=== PATIENT | male | born 1955 ===

== ENCOUNTER 2018-04-19 20:59 | Emergency (ER) | payer OTHER ==
[2018-04-19] MEDS ORDERED: Sodium Chloride 0.9% 500 ML IV ONE ×2 (21:48→23:46)
[2018-04-19 21:51] LABS: BASO % 0.3 % (0.0-2.0); EOS # 0.2 K/uL (0.0-0.7); EOS % 1.7 % (0.0-4.0); HEMOGLOBIN 15.1 g/dL (12.0-18.0); LYMPH # 0.3 K/uL (1.0-4.3); LYMPH % 2.1 % (20.0-40.0); MEAN CELL VOLUME 82.7 fL (80.0-94.0); MEAN CORPUSCULAR HGB CONC 32.6 g/dL (33.0-37.0); MONO # 0.9 K/uL (0.0-0.8); MONO % 6.7 % (0.0-10.0); NEUT # 11.8 K/uL (1.8-7.0); NEUT % 89.2 % (50.0-75.0); NRBC % 0.1 % (0.0-2.0); PLATELET COUNT 323 K/uL (130-400); RBC 5.61 Mil/uL (4.40-5.90); RED CELL DISTRIBUTION WIDTH 13.7 % (11.5-14.5); WHITE BLOOD COUNT 13.2 K/uL (4.8-10.8)
[2018-04-19 22:03] LABS: ALB/GLOB RATIO 1.8 (1.0-2.1); ALBUMIN 4.9 g/dL (3.5-5.0); ALT/SGPT 37 U/L (21-72); AST/SGOT 33 U/L (17-59); BLOOD UREA NITROGEN 16 mg/dL (9-20); CALCIUM 9.6 mg/dl (8.6-10.4); GFR NON-AFRICAN AMERICAN > 60; LIPASE 93 U/L (23-300)
--- NOTE | 2018-04-19 22:06 | C.PDOC ---
History Of Present Illness 62 year old male presents to the ER with a complaint of epigastric pain radiating up into his chest that began today and is associated with nausea and fever. Patient reports similar episodes twice before that resolved on their own. He is scheduled to see GI this week. Denies SOB, vomiting, diarrhea, or dysuria. Admits to mild nonproductive cough. Time Seen by Provider: 04/19/18 21:19 Chief Complaint (Nursing): Fever History Per: Patient History/Exam Limitations: no limitations Onset/Duration Of Symptoms: Hrs Current Symptoms Are (Timing): Still Present Location Of Pain/Discomfort: Epigastric Radiation Of Pain To:: Chest Quality Of Discomfort: Unable To Describe Associated Symptoms: Fever, Nausea, Other (Mild nonproductive cough) Exacerbating Factors: None Alleviating Factors: None Recent travel outside of the [place]: No Past Medical History Reviewed: Historical Data, Nursing Documentation, Vital Signs Vital Signs: Last Vital Signs Temp 102.3 F H 04/19/18 21:14 Pulse 127 H 04/19/18 21:14 Resp 20 04/19/18 21:14 BP 142/92 H 04/19/18 21:14 Pulse Ox 93 L 04/19/18 21:14 Family History: States: Unknown Family Hx - Social History Hx Alcohol Use: No Hx Substance Use: No - Immunization History Hx Tetanus Toxoid Vaccination: Yes Hx Influenza Vaccination: No Hx Pneumococcal Vaccination: No Review Of Systems Constitutional: Positive for: Fever Respiratory: Positive for: Cough (Mild nonproductive) Gastrointestinal: Positive for: Nausea, Abdominal Pain (Radiating into chest) Physical Exam - Physical Exam Appears: Non-toxic, Other (Uncomfortable. Able to speak in complete sentences.) Skin: Normal Color, Warm, Dry Head: Atraumatic, Normacephalic Eye(s): bilateral: Normal Inspection Oral Mucosa: Moist Neck: Normal, Supple Chest: Symmetrical, No Tenderness Cardiovascular: Rhythm Regular Respiratory: Normal Breath Sounds, No Rales, No Rhonchi, No Wheezing Gastrointestinal/Abdominal: Soft, Tenderness (Mildly to epigastric area. Negative Curtis's, Negative Mcburney's.) Back: No CVA Tenderness Neurological/Psych: Oriented x3, Normal Speech ED Course And Treatment - Laboratory Results Result Diagrams: 04/19/18 21:46 04/19/18 21:46 Lab Results: Total Bilirubin 1.2 mg/dL (0.2-1.3) 04/19/18 21:46 AST 33 U/L (17-59) 04/19/18 21:46 ALT 37 U/L (21-72) 04/19/18 21:46 Alkaline Phosphatase 138 U/L (38-126) H 04/19/18 21:46 Total Protein 7.7 g/dL (6.3-8.3) 04/19/18 21:46 Albumin 4.9 g/dL (3.5-5.0) 04/19/18 21:46 Globulin 2.8 gm/dL (2.2-3.9) 04/19/18 21:46 Albumin/Globulin Ratio 1.8 (1.0-2.1) 04/19/18 21:46 Lipase 93 U/L (23-300) 04/19/18 21:46 ECG: Interpreted By Me, Viewed By Me ECG Rhythm: Sinus Tachycardia ECG Interpretation: Normal Interpretation Of ECG: Normal axis, Q waves in 3 and avf, No acute ST/T wave changes. Rate From EC O2 Sat by Pulse Oximetry: 93 - CT Scan/US ct abd/pelvis Other Rad Studies (CT/US): Read By Radiologist, Radiology Report Reviewed CT/US Interpretation: Name:AIRAM FLOOD Exam Date:Apr 19, 2018 10:57:38 PM EST. Modality Type:CT. Description :CT - ABDOMEN AND PELVIS WITH CORONAL AND SAGITTAL MPRS. Gender:M Laterality:Not applicable. :53 Referring Physician:KRISSY DEE MD. EXAM: CT Abdomen and Pelvis without IV contrast. CLINICAL HISTORY: Samara umbilical pain. TECHNIQUE: Axial computed tomography images of the abdomen and pelvis without intravenous contrast. CONTRAST: Without intravenous contrast. COMPARISON: None provided. FINDINGS: LUNG BASES: The lung bases appear clear. No pleural effusions are seen. LIVER: Unremarkable. GALLBLADDER AND BILE DUCTS: The gallbladder appears within normal limits. No radioopaque gallstones are seen. No biliary ductal dilatation is evident. PANCREAS: Unremarkable. SPLEEN: Unremarkable. ADRENAL GLANDS: Unremarkable. KIDNEYS, URETERS, AND BLADDER: A tiny punctate non-obstructing calculus is seen in the posterior mid-lower left renal pole. Otherwise, the kidneys appear within normal limits. There is no hydronephrosis or hydroureter. No urinary calculi are seen. The urinary bladder is normal in size and configuration. STOMACH AND BOWEL: There is circumferential mucosal edematous thickening of the vargas of the lower esophagus extending to the esophagogastric junction. This could indicate a component of reflux esophagitis. Consideration could be given to upper endoscopic evaluation. The stomach is mildly distended with fluid and gas. No evidence of bowel obstruction. No evidence suggesting enteritis or colitis. APPENDIX: No evidence of acute appendicitis on CT examination. PERITONEUM: No free fluid. No free air. A left inguinal-left scrotal hernia is present which contains fluid. The left hemiscrotum appears fluid distended. There is also evidence of previous bilateral inguinal herniorrhaphy. LYMPH NODES: No lymphadenopathy is evident. REPRODUCTIVE: The seminal vesicles and prostate gland appear normal. VASCULATURE: No evidence of abdominal aortic aneurysm. BONES: No aggressive appearing osseous lesion. No acute osseous pathology evident. Mild levoscoliotic curvature of the lumbar spine is noted with the apex at L3. There is evidence of advanced degenerative disc disease at L5-S1. IMPRESSION: 1. No acute intra-abdominal or pelvic abnormality. 2. Circumferential mucosal thickening of the vargas of the lower esophagus extending to the esophagogastric junction. This may be subsequent to GERD. Consideration could be given to upper endoscopic evaluation. 3. A punctate non-obstructing calculus is noted in the posterior mid-lower left renal pole. 4. A left inguinal-left scrotal hernia is present which contains fluid distention within the left hemiscrotal sac. Urology consultation may be indicated. 5. Status post previous bilateral inguinal herniorrhaphy. 6. Evidence of advanced degenerative disc disease at L5-S1. . Electronically signed on Apr 19, 2018 11:43:11 PM EST by: Hero Dacosta M.D., [employer] Certified By ABR & CBC[employer]. Fellowship Trained MRI and CT Specialist Progress Note: Blood work, urinalysis, EKG, and CXR ordered. IV fluids and tylenol administered. Disposition Counseled Patient/Family Regarding: Studies Performed, Diagnosis, Need For Followup, Rx Given - Disposition Referrals: Aris Estrada MD [Staff Provider] - Disposition: HOME/ ROUTINE Disposition Time: 01:45 Condition: STABLE Additional Instructions: FOLLOW UP WITH YOUR COMBAT SYSTEMS OFFICER THURSDAY SCHEDULED USE MEDICATIONS DIRECTED/NEEDED RETURN TO EMERGENCY ROOM IF YOUR SYMPTOMS BECOME WORSE KARTIK SEGUIMIENTO CON TALAVERA GASTROENTERLOGO EL JUEVES SEGN LO HABILITADO UTILICE MEDICAMENTOS SEGN DIRIGIDO / NECESARIO VUELVA A LA [place] DE EMERGENCIA SI NIGHAT SNTOMAS SE HACEN PEOR Prescriptions: Aluminum Hydroxide/Magnesium [Maalox Plus 30 ml] 30 ml PO BID PRN #1 bottle PRN Reason: EPIGASTRIC PAIN Famotidine [Pepcid] 20 mg PO BID PRN #15 tab PRN Reason: abdominal Pantoprazole [Protonix EC Tab] 20 mg PO DAILY #30 ect Instructions: Dyspepsia (DC), Acid Reflux (Gastroesophageal Reflux Disease), Adult (DC) Forms: [employer] (Sami) Print Language: ZAMBIAN - Clinical Impression Clinical Impression: Epigastric abdominal pain - Scribe Statement The provider has reviewed the documentation as recorded by the Scribe Romeo Gayle All medical record entries made by the Scribe were at my direction and personally dictated by me. I have reviewed the chart and agree that the record accurately reflects my personal performance of the history, physical exam, medical decision making, and the department course for this patient. I have also personally directed, reviewed, and agree with the discharge instructions and disposition.
[2018-04-19 22:13] LABS: INR 1.2; PROTHROMBIN TIME 12.6 SECONDS (9.7-12.2)
[2018-04-19 22:14] LABS: CK-MB 0.47 ng/mL (0.0-3.38)
[2018-04-19 22:17] LABS: URINE BILIRUBIN NEGATIVE (NEGATIVE); URINE BLOOD 2+ (NEGATIVE); URINE CLARITY Clear (Clear); URINE COLOR Yellow (YELLOW); URINE GLUCOSE (UA) NORMAL (Normal); URINE LEUKOCYTE ESTERASE NEG Leu/uL (Negative); URINE PROTEIN NEGATIVE (NEGATIVE); URINE UROBILINOGEN NORMAL mg/dL (0.2-1.0)
[2018-04-19 22:25] LABS: BASOPHIL 1 % (0-2); EOSINOPHIL 3 % (0-4); LYMPHOCYTE 1 % (20-40); MONOCYTE 7 % (0-10); NEUTROPHIL 88 % (50-75); PLATELET ESTIMATE NORMAL (NORMAL); TOTAL CELLS COUNTED 100
[2018-04-19 22:34] LABS: VENOUS BLOOD GAS BASE EXCESS 2.2 mmol/L (0.0-2.0); VENOUS BLOOD GAS PCO2 43 mmHg (40-60); VENOUS BLOOD GAS PO2 29 mm/Hg (30-55); VENOUS BLOOD PH 7.41 (7.32-7.43)
[2018-04-19] MEDS ORDERED: Morphine 4 MG/ML VIAL ONE (23:59)
[2018-04-19] MEDS ORDERED: Sodium Chloride 0.9% 1,000 ML ONE (23:59)
[2018-04-20] MEDS ORDERED: Alum-Mag Hydrox-Simethicone Susp (30 mL) PO STA (01:09)
[2018-04-20 01:11] VITALS: BP 105/71; PULSE 94; RESP 20; TEMP 99.3
[2018-04-20] MEDS ORDERED: Alum-Mag Hydrox-Simethicone Susp (30 mL) ONE (01:16)
[2018-04-20 01:46] VITALS: O2SAT 93
--- NOTE | 2018-04-20 10:17 | RAD ---
HISTORY: CP/ABD PAIN COMPARISON: Chest x-ray performed 01/22/18 TECHNIQUE: Chest, one view. FINDINGS: LUNGS: Hypoinflation. No focal consolidation. Please note that chest x-ray has limited sensitivity for the detection of pulmonary masses. PLEURA: No significant pleural effusion identified. No definite pneumothorax . CARDIOVASCULAR: Heart size appears within normal limits. Ectatic aorta. Atherosclerotic calcifications OSSEOUS STRUCTURES: Degenerative changes. VISUALIZED UPPER ABDOMEN: Unremarkable. OTHER FINDINGS: None. IMPRESSION: No focal consolidation. Hypoinflation.
--- NOTE | 2018-04-20 10:57 | CT ---
PROCEDURE: CT Abdomen and Pelvis without Oral or IV contrast. HISTORY: UPPER ABD PAIN COMPARISON: None available. Prior none TECHNIQUE: Contiguous axial images of the abdomen and pelvis. No oral or IV contrast administered. Coronal and Sagittal reformats generated and reviewed. Radiation dose: Total exam DLP = 980.3 mGy-cm. This CT exam was performed using one or more of the following dose reduction techniques: Automated exposure control, adjustment of the mA and/or kV according to patient size, and/or use of iterative reconstruction technique. FINDINGS: There is limited evaluation of the solid organs without the administration of IV contrast. LOWER THORAX: No visible consolidation, pleural effusion, or pneumothorax. Markedly circumferentially thick-walled distal esophagus. LIVER: Unremarkable unenhanced appearance. GALLBLADDER AND BILE DUCTS: Unremarkable unenhanced appearance. PANCREAS: Unremarkable unenhanced appearance. SPLEEN: Unremarkable unenhanced appearance. ADRENALS: Unremarkable unenhanced appearance. KIDNEYS AND URETERS: No hydronephrosis or obstructing renal calculus. Punctate nonobstructing left lower pole calculus. BLADDER: Under distended urinary bladder appears mildly thick-walled. REPRODUCTIVE: The prostate gland measures approximately 3.6 x 4.8 cm. APPENDIX: The appendix appears within normal limits of caliber. No secondary signs of acute appendicitis. BOWEL: The stomach is nondistended. Lack of oral contrast limits evaluation for bowel pathology. The bowel loops appear within normal limits of caliber without evidence of intestinal obstruction. PERITONEUM: No significant free fluid. No definite free air. LYMPH NODES: No bulky lymphadenopathy identified. VASCULATURE: Minimal atherosclerotic calcifications of the aorta. No aortic aneurysm. BONES: Demineralization. Scoliosis with mild curvature of the lumbar spine convex to the left. Multilevel degenerative changes. Degenerative changes most severe at L5-S1. OTHER FINDINGS: Large left and smaller right inguinal hernias which contain both fluid and fat. Evidence of prior inguinal hernia repairs. IMPRESSION: Markedly circumferentially thick-walled distal esophagus. Correlate clinically and suggest further evaluation with endoscopy. Large left and smaller right inguinal hernias which contain both fluid and fat. Hernia extends into the left scrotum with large amount of fluid. Evidence of prior inguinal hernia repairs. Mildly thick-walled urinary bladder may be exaggerated by under distension. Additional incidental findings as above. Preliminary impression was provided by [employer]
== END 2018-04-20 02:03 | disposition home or self-care (01) ==
LOC: C.ER 20:59
DX: R10.13 Epigastric pain (principal)
CPT/HCPCS: 71045; 74176; 80053; 81001; 82550; 82553; 82803; 82948; 83690; 84484; 85025; 85610; 85730; 87040; 87086; 87804; 96374; 96375; 99285; C9113; J2270; J2405; J7040